=== PATIENT | male | born 1965 | race African-American/Black ===

== ENCOUNTER 2023-05-11 15:34 | Emergency (ER) | payer MEDICAID, OTHER ==
[~2023-05-11] VITALS: Ht 175.3 cm; Wt 85.0 kg
[2023-05-11 15:46] VITALS: O2SAT 100
[2023-05-11 17:53] LABS: CLARITY URINE CLEAR (CLEAR); COLOR URINE YELLOW (YELLOW); GLUCOSE URINE NEGATIVE (NEGATIVE); KETONES URINE NEGATIVE (NEGATIVE); LEUKOCYTE ESTERASE URINE NEGATIVE (NEGATIVE); NITRITE URINE NEGATIVE (NEGATIVE); OCCULT BLOOD URINE NEGATIVE (NEGATIVE); PH URINE 5.5 (4.5-8.0); PROTEIN URINE NEGATIVE (NEGATIVE); SPECIFIC GRAVITY URINE 1.024 (1.005-1.030)
[2023-05-11] MEDS ORDERED: CEFTRIAXONE SODIUM 500 MG/VIAL IM ONE (18:00)
[2023-05-11] MEDS ORDERED: DOXY100C5 MT (18:08)
[2023-05-11 18:45] VITALS: BP 130/84; PULSE 58; RESP 18; TEMP 98.7
== END 2023-05-11 19:00 | disposition home or self-care (01) ==
LOC: ER 16:08
DX: A63.8 Other specified predominantly sexually transmitted diseases (principal)
CPT/HCPCS: 99283; 81003; 96372; J0696

== ENCOUNTER 2023-07-14 09:43 | Emergency (ER) | payer MEDICAID ==
[~2023-07-14] VITALS: Ht 203.2 cm; Wt 97.2 kg
[~2023-07-14 09:43] MED LIST: DOXY100C5 MT
[2023-07-14 09:48] VITALS: O2SAT 99
[2023-07-14] MEDS ORDERED: LIDOCAINE HCL 1% 20ML VIAL (Pyxis) INJ INFIL ONE (11:00)
[2023-07-14] MEDS ORDERED: AZITHROMYCIN 500 MG TABLET PO SCH (11:00)
[2023-07-14] MEDS ORDERED: CEFTRIAXONE SODIUM 500 MG/VIAL IM ONE (11:00)
[2023-07-14 11:08] LABS: CLARITY URINE CLEAR (CLEAR); COLOR URINE YELLOW (YELLOW); GLUCOSE URINE NEGATIVE (NEGATIVE); KETONES URINE NEGATIVE (NEGATIVE); LEUKOCYTE ESTERASE URINE NEGATIVE (NEGATIVE); NITRITE URINE NEGATIVE (NEGATIVE); OCCULT BLOOD URINE NEGATIVE (NEGATIVE); PROTEIN URINE NEGATIVE (NEGATIVE); SPECIFIC GRAVITY URINE 1.013 (1.005-1.030); UROBILINOGEN URINE 0.2 E.U./dL (0.2-1.0)
[2023-07-14] MEDS ORDERED: DOXY100C5 MT (11:25)
[2023-07-14] MEDS ORDERED: PYR200 MT (11:25)
[2023-07-14 11:49] VITALS: BP 124/57; PULSE 55; RESP 18; TEMP 97.9
== END 2023-07-14 11:50 | disposition home or self-care (01) ==
LOC: ER 10:01
DX: R30.0 Dysuria (principal)
CPT/HCPCS: 81003; 96372; 99283; J0696; J3490; Z7610

== ENCOUNTER 2024-01-27 04:10 | Emergency (ER) | payer MEDICAID ==
[~2024-01-27] VITALS: Ht 203.2 cm; Wt 104.5 kg
[~2024-01-27 04:10] MED LIST changes: +PYR200 MT
[2024-01-27 04:20] VITALS: BP 142/87; PULSE 51; RESP 16; TEMP 98.2; O2SAT 100
[2024-01-27 04:47] LABS: CLARITY URINE CLEAR (CLEAR); COLOR URINE YELLOW (YELLOW); GLUCOSE URINE NEGATIVE (NEGATIVE); KETONES URINE NEGATIVE (NEGATIVE); LEUKOCYTE ESTERASE URINE 2+ (NEGATIVE); NITRITE URINE NEGATIVE (NEGATIVE); OCCULT BLOOD URINE NEGATIVE (NEGATIVE); PROTEIN URINE NEGATIVE (NEGATIVE); SPECIFIC GRAVITY URINE 1.025 (1.005-1.030)
[2024-01-27] MEDS ORDERED: DOXY200T8 MT (05:30)
[2024-01-27] MEDS: DOXYCYCLINE HYCLATE 100MG CAPSULE PO ONE (05:30)
[2024-01-27] MEDS: CEFTRIAXONE SODIUM 500MG VIAL IM ONE (05:30)
[2024-01-27 05:38] LABS: BACTERIA URINE TRACE; SQUAMOUS EPITHELIAL CELL URINE 1+ /lpf (RARE/1+); WBC URINE 50-100 /hpf (0-2)
== END 2024-01-27 06:15 | disposition home or self-care (01) ==
LOC: ER 04:10
DX: R36.9 Urethral discharge, unspecified (principal)
CPT/HCPCS: 99283; 81003; 87086; 96372; J0696

== ENCOUNTER 2024-12-06 19:11 | Emergency (ER) | payer MEDICAID ==
[~2024-12-06] VITALS: Ht 185.4 cm; Wt 105.0 kg
[~2024-12-06 19:11] MED LIST changes: +DOXY200T8 MT
[2024-12-06 19:14] VITALS: O2SAT 98
[2024-12-06] MEDS: HYDROCODONE/ACETAMINOPHEN 5/325MG TABLET PO STA (20:50)
[2024-12-06] MEDS ORDERED: IBUP-2029 PO (21:45)
[2024-12-06] MEDS ORDERED: CYCL5TAB3 MT (21:45)
[2024-12-06 22:00] VITALS: BP 135/80; PULSE 68; RESP 18; TEMP 36.8; O2SAT 98
== END 2024-12-06 22:00 | disposition home or self-care (01) ==
LOC: ER 19:11
DX: S16.1XXA Strain of muscle, fascia and tendon at neck level, initial encounter (principal); S39.012A Strain of muscle, fascia and tendon of lower back, initial encounter; S80.01XA Contusion of right knee, initial encounter; Z79.899 Other long term (current) drug therapy; V89.2XXA Person injured in unspecified motor-vehicle accident, traffic, initial encounter; Y93.89 Activity, other specified; Y92.89 Other specified places as the place of occurrence of the external cause; Y99.8 Other external cause status
CPT/HCPCS: 72100; 73562; 99284